=== PATIENT | female | born 1965 | race Caucasian/White ===

== ENCOUNTER 2019-06-21 14:05 | Emergency (ER) | payer OTHER ==
[~2019-06-21] VITALS: Ht 157.5 cm; Wt 55.8 kg
--- OUTSIDE RECORDS SUMMARY | 2019-06-21 14:07 | XMS REPORT ---
[facility] Address Unknown Phone Unavailable Care Team Providers Care Special Service Representative Name Role Phone Unavailable Unavailable Payers Payer Name Policy Type Policy Number Effective Date Expiration Date Problems This patient has no known problems. Allergies, Adverse Reactions, Alerts Allergy Name Allergy Type Status Severity Reaction(s) Onset Date Inactive Date Treating Clinician Comments No Known Allergies DA Active U 2016-01-25 00:00:00 Medications This patient has no known medications.
--- OUTSIDE RECORDS SUMMARY | 2019-06-21 14:07 | XMS REPORT | Continuity of Care Document ---
Author Author [facility] Address Unknown Phone Unavailable Care Team Providers Care Adjunct Latin Professor Name Role Phone [employer] Unavailable Unavailable Problems Problem Status Onset Date Classification Date Reported Comments Source Abnormal EKG Active Diagnosis 09/20/2016 Ahmed Ahmed Abn. Cardio Study Active Diagnosis 09/20/2016 Ahmed Ahmed Precordial pain Active Diagnosis 09/20/2016 Ahmed Ahmed Medications No Data Provided for This Section Allergies, Adverse Reactions, Alerts Substance Category Reaction Severity Reaction type Status Date Reported Comments Source N.K.D.A. Adverse Reaction Info Not Available Adverse Reaction Active 03/19/2015 Ahmed Ahmed Immunizations No Data Provided for This Section Results No Data Provided for This Section Pathology Reports No Data Provided for This Section Diagnostic Reports No Data Provided for This Section Consultation Notes No Data Provided for This Section Discharge Summaries No Data Provided for This Section History and Physicals No Data Provided for This Section Vital Signs Vital Sign Value Date Comments Source Weight 125 03/19/2015 Ahmed Ahmed Heart Rate 72 03/19/2015 Ahmed Ahmed Diastolic (mm Hg) 66 03/19/2015 Ahmed Ahmed Systolic (mm Hg) 94 03/19/2015 Ahmed Ahmed Encounters Location Location Details Encounter Type Encounter Number Reason For Visit Attending Provider ADM Date DC Date Status Source Yani Lomeli [place], [place] f/u Stress Echo [id number] 03/19/2015 03/19/2015 Ahorin Lomeli Procedures No Data Provided for This Section Assessment and Plan No Data Provided for This Section Plan of Care No Data Provided for This Section Social History Social History Date Source Social History ElementQualifiersDate Reported Smoking: . Are you a: Never smoker March 19, 2015 Alcohol: . None March 19, 2015 03/19/2015 Yani Lomeli Family History No Data Provided for This Section Advance Directives No Data Provided for This Section Functional Status No Data Provided for This Section
--- OUTSIDE RECORDS SUMMARY | 2019-06-21 14:07 | XMS REPORT ---
Author Author Yani Lomeli Organization [employer] Address Unknown Phone Unavailable Care Team Providers Care Machine Records Units Supervisor Name Role Phone Yani Lomeli CP Unavailable Allergies, Adverse Reactions, Alerts Substance Reaction Event Type N.K.D.A. Info Not Available Non Drug Allergy Encounters Encounter Location Date f/u Stress Echo Yani Lomeli [place], [place] March 19, 2015 Problems Problem Type Condition ICD-9 Code Onset Dates Condition Status Assessment Abnormal EKG 794.31 Active Assessment Abn. Cardio Study 794.39 Active Assessment Precordial pain 786.51 Active Social History Social History Element Qualifiers Date Reported Smoking: . Are you a: Never smoker March 19, 2015 Alcohol: . None March 19, 2015 Vital Signs Date/Time: March 19, 2015 Weight 125 lbs Cardiac Monitoring Heart Rate 72 /min Blood Pressure Diastolic 66 mm Hg Blood Pressure Systolic 94 mm Hg Summary Purpose [employer] Submission
--- NOTE | 2019-06-21 15:26 | Diagnostic Imaging Report ---
EXAMINATION: Head and cervical spine CT without contrast. HISTORY: Status post fall 4 days ago, hit the posterior head, trauma, pain COMPARISON: None. TECHNIQUE: Multidetector axial images were obtained without contrast from the foramen magnum to the vertex and through the cervical spine. The images were reconstructed using brain and bone algorithms. Thin section brain images were reformatted into coronal and sagittal planes. Dose modulation, iterative reconstruction, and/or weight based adjustment of the mA/kV was utilized to reduce the radiation dose to as low as reasonably achievable. HEAD CT FINDINGS: Skull/scalp: Right temporoparietal craniotomy defect. Parenchyma: Cortico-subcortical encephalomalacia in the right posterior middle temporal gyrus, likely the sequela from remote trauma, infection or ischemia, correlation with past medical history is advised. Otherwise there are no areas of abnormal density in the brain parenchyma. No mass, hemorrhage or CT evidence of acute vascular insult. Brain volume: Normal for age. Ventricles: No hydrocephalus or displacement. Arteries: No density suggestive of thrombus. Dural sinuses: No abnormal density. Extra-axial spaces: No abnormal density. Foramen magnum: No mass, Chiari malformation, or basilar invagination. Sella: No obvious mass. Paranasal/mastoid sinuses: Imaged portions unremarkable. CERVICAL SPINE CT FINDINGS: Alignment:Normal alignment and lordosis. Soft tissues: Normal. Vertebrae: Small nondisplaced acute fracture line through the right transverse process of C7. Otherwise no acute fractures. Normal height and density. No infection or neoplasm. Degenerative changes: C1-C2: Normal C2-C3: Normal C3-C4: Normal C4-C5: Asymmetric left disc osteophyte formation, bilateral uncovertebral and facet arthrosis most on the left. Mild right and moderate left foraminal stenosis. C5-C6: Disc osteophyte complex formation, bilateral uncovertebral arthrosis. Mild to moderate bilateral foraminal stenoses. C6-C7: Normal C7-T1: Normal IMPRESSION: Head CT: 1. No acute postraumatic intracranial hemorrhage. 2. Right temporoparietal craniotomy with underlying right temporal lobe encephalomalacia without evidence of mass at this time. Cervical spine CT: 1. No acute fractures or dislocations. 2. Chronic degenerative changes as described. Note: Acute post traumatic spinal cord, vascular or ligamentous injury cannot adequately be assessed with CT. The findings were discussed with the ER physician Dr. Reed on 06/21/2019 at 3:15 PM Signed by: Dr. Parul Hardin M.D. on 06/21/2019 3:23 PM
--- NOTE | 2019-06-21 15:59 | NUR ---
SOFT CERVICAL COLLAR APPLIED. Marisabel HERNANDES NP IN TRIAGE FOR RE-EVAL AND DISCUSSING THE CURRENT PLAN OF CARE WITH PATIENT AND FAMILY,FOLLOW UP WITH WITH DR RUBALCAVA, AND C-COLLAR INSTRUCTIONS, VERBALIZED UNDERSTANDING. NO SIGNS OF ACUTE DISTRESS NOTED AT THIS TIME.
== END 2019-06-21 16:05 | disposition home or self-care (01) ==
LOC: ER 14:05
DX: S00.83XA Contusion of other part of head, initial encounter (principal); R51 Headache; M54.2 Cervicalgia; S12.691A Other nondisplaced fracture of seventh cervical vertebra, initial encounter for closed fracture; S16.1XXA Strain of muscle, fascia and tendon at neck level, initial encounter; W01.0XXA Fall on same level from slipping, tripping and stumbling without subsequent striking against object, initial encounter; Y92.008 Other place in unspecified non-institutional (private) residence as the place of occurrence of the external cause
CPT/HCPCS: 70450; 72125; 99283